=== PATIENT | male | born 1990 | race Hispanic/Latino ===

== ENCOUNTER 2024-02-12 00:22 | Emergency (ER) | payer OTHER ==
[~2024-02-12] VITALS: Ht 188 cm; Wt 96.6 kg
[2024-02-12 00:54] VITALS: TEMP 97.6
[2024-02-12 01:30] LABS: BASOPHILS # (AUTO) 0.02 K/uL (0.00-0.20); BASOPHILS % (AUTO) 0.4 % (0.0-5.0); EOSINOPHILS # (AUTO) 0.17 K/uL (0.00-0.70); HEMATOCRIT 40.6 % (42-54); IMMATURE GRANULOCYTE ABSOLUTE 0.01 K/uL (0-1); LYMPHOCYTES # (AUTO) 1.2 K/uL (1.0-4.8); LYMPHOCYTES % (AUTO) 20.8 % (21.0-51.0); MEAN CORPUSCULAR HEMOGLOBIN 30.2 pg (27.0-33.0); MEAN CORPUSCULAR HGB CONC 35.2 g/dL (32.0-36.0); MEAN CORPUSCULAR VOLUME 85.8 fL (79-99); MONOCYTES # (AUTO) 0.5 K/uL (0.1-1.0); MONOCYTES % (AUTO) 9.5 % (3.0-13.0); NEUTROPHILS # (AUTO) 3.8 K/uL (1.8-7.7); NEUTROPHILS % (AUTO) 66.1 % (40.0-77.0); PLATELET COUNT (AUTO) 225 K/uL (130-400); RED BLOOD CELL COUNT(AUTO) 4.73 MIL/uL (4.50-6.20); RED CELL DISTRIBUTION WIDTH 12.1 % (11.0-15.5); WHITE BLOOD COUNT (AUTO) 5.7 K/uL (4.8-10.8)
[2024-02-12 01:44] LABS: POTASSIUM 3.4 mmol/L (3.5-5.1)
[2024-02-12] MEDS: LORazepam 1 MG TABLET PO ONE (01:48)
[2024-02-12] MEDS: LACTATED RINGERS 1000ML 1,000 ML IV ONE (01:48)
[2024-02-12 03:06] VITALS: PULSE 99; RESP 18
[2024-02-12 03:51] VITALS: BP 139/100; O2SAT 98
== END 2024-02-12 03:58 | disposition home or self-care (01) ==
LOC: EDH 00:22
DX: F43.9 Reaction to severe stress, unspecified (principal); F41.9 Anxiety disorder, unspecified; Z98.890 Other specified postprocedural states
CPT/HCPCS: 99285; 96360; 71045; 96361; 80048; 85025; 36415; J7120